=== PATIENT | female | born 1955 | race Caucasian/White ===

== ENCOUNTER 2018-11-18 05:21 | Day surgery (SDC) | payer BC ==
[~2018-11-18] VITALS: Ht 162.6 cm; Wt 85.1 kg
[~2018-11-18 05:21] MED LIST: ESTR0.5T PO; LANS30CA PO
[2018-11-18] MEDS ORDERED: LACTATED RINGERS 1,000 ML IV SCH (06:12)
[2018-11-18 06:37] VITALS: BP 116/79
[2018-11-18] MEDS ORDERED: FENTANYL PF 250 MCG/5ML ONE (07:18)
[2018-11-18] MEDS ORDERED: BUPIVACAINE/PF 0.25% ONE (07:18)
[2018-11-18] MEDS ORDERED: MIDAZOLAM 1 MG/ML, 2ML ONE (07:18)
[2018-11-18] MEDS ORDERED: PROPOFOL 50 ML ONE (07:18)
[2018-11-18] MEDS ORDERED: EPINEPHRINE 1 MG/ML, 1ML ONE (07:19)
[2018-11-18] MEDS ORDERED: VANCOMYCIN 500 MG ONE (07:19)
[2018-11-18] MEDS ORDERED: LIDOCAINE/PF 0.5% ,50ML ONE (07:19)
[2018-11-18] MEDS ORDERED: TOBRAMYCIN SULFATE 1.2 GM IMP ONE (07:19)
[2018-11-18] MEDS ORDERED: THROMBIN 20,000 UNIT VIAL TP ONE (07:19)
[2018-11-18] MEDS ORDERED: VANCOMYCIN 1,000 MG ONE (07:19)
[2018-11-18] MEDS ORDERED: PROPOFOL 10 MG/ML, 20ML ONE (07:42)
[2018-11-18] MEDS ORDERED: CEFAZOLIN 1,000 MG ONE (07:42)
[2018-11-18] MEDS ORDERED: GLYCOPYRROLATE 0.2MG/1ML, 5ML ONE (07:42)
[2018-11-18] MEDS ORDERED: ONDANSETRON 2MG/ML, 2ML ONE (07:42)
[2018-11-18] MEDS ORDERED: DEXAMETHASONE 4 MG/ML, 1ML ONE (07:42)
[2018-11-18] MEDS ORDERED: SUCCINYLCHOLINE 20 MG/ML, 10ML ONE (07:42)
[2018-11-18] MEDS ORDERED: ROCURONIUM 10 MG/ML,10ML ONE (07:42)
[2018-11-18] MEDS ORDERED: LIDOCAINE 0.5%-EPI 1:200K, 50ML INFIL ONE (08:15)
[2018-11-18] MEDS ORDERED: BUPIVACAINE/PF-EPI 0.25% 1:200K INFIL ONE (08:15)
[2018-11-18] MEDS ORDERED: VANCOMYCIN 1,000 MG IVPush ONE (08:15)
[2018-11-18] MEDS ORDERED: TOBRAMYCIN SULFATE 1.2 GM IMP IMPLANT ONE (08:15)
[2018-11-18] MEDS ORDERED: DIAZEPAM 5 MG/ML, 2ML IVPush PRN (08:30)
[2018-11-18] MEDS ORDERED: PROMETHAZINE 12.5 MG SUPP PR PRN (08:30)
[2018-11-18] MEDS ORDERED: MEPERIDINE/PF 25MG/0.5ML IVPush PRN (08:30)
[2018-11-18] MEDS ORDERED: LABETALOL 5MG/ML, 20ML IV PRN (08:30)
[2018-11-18] MEDS ORDERED: OXYcodone 5 MG/5 ML ORAL.SOL UDC PO PRN (08:30)
[2018-11-18] MEDS ORDERED: ACETAMINOPHEN 325 MG TABLET PO PRN (08:30)
[2018-11-18] MEDS ORDERED: PROMETHAZINE 25 MG/ML, 1ML IV PRN (08:30)
[2018-11-18] MEDS ORDERED: DIPHENHYDRAMINE 50 MG/ML, 1ML IVPush PRN (08:30)
[2018-11-18] MEDS ORDERED: ONDANSETRON 2MG/ML, 2ML IV PRN (08:30)
[2018-11-18] MEDS ORDERED: EPHEDRINE 50 MG/ML, 1ML IM PRN (08:30)
[2018-11-18] MEDS ORDERED: PROMETHAZINE 25 MG SUPP PR PRN (08:30)
[2018-11-18] MEDS ORDERED: MIDAZOLAM 1 MG/ML, 2ML IV PRN (08:30)
[2018-11-18] MEDS ORDERED: MORPHINE SULFATE 4 MG/ML, 1ML IVPush PRN (08:30)
[2018-11-18] MEDS ORDERED: EPHEDRINE 50 MG/ML, 1ML IVPush PRN (08:30)
[2018-11-18] MEDS ORDERED: ONDANSETRON ODT 8 MG PO PRN (08:30)
[2018-11-18] MEDS ORDERED: FENTANYL PF 100 MCG/2ML ONE (10:27)
[2018-11-18] MEDS ORDERED: OXYcodone 5 MG/5 ML ORAL.SOL UDC ONE (10:27)
[2018-11-18] MEDS: FENTANYL PF 100 MCG/2ML IV PRN ×2 (10:30→10:40)
[2018-11-18] MEDS ORDERED: ERYTHROMYCIN OPHTH 0.5%, 1GM RIGHTEYE SCH (21:00)
== END 2018-11-18 14:50 | disposition home or self-care (01) ==
LOC: OUT 05:21
PROVIDERS: ATTEND Orthopaedic Surgery Orthopaedic Surgery of the Spine
DX: M51.16 Intervertebral disc disorders with radiculopathy, lumbar region (principal); Z88.8 Allergy status to other drugs, medicaments and biological substances; Z90.710 Acquired absence of both cervix and uterus; Z90.49 Acquired absence of other specified parts of digestive tract; Z98.890 Other specified postprocedural states; Z79.01 Long term (current) use of anticoagulants
CPT/HCPCS: 36415; 63030; 71046; 72100; 80053; 81003; 85025; 85610; 85730; 93005; J0171; J0330; J0690; J1100; J2001; J2250; J2405; J2704; J3010; J3260; J3370; J3490; J7120